=== PATIENT | male | born 2000 | race African-American/Black ===

== ENCOUNTER 2018-02-11 11:29 | Emergency (ER) | payer OTHER ==
[~2018-02-11] VITALS: Ht 167.6 cm; Wt 95.3 kg
[~2018-02-11 11:29] MED LIST: DESPEC-DM TABL1 EACH PO; ZITHROMAX200 MG PO
[2018-02-11] MEDS ORDERED: MEDROLPACK PO (15:12)
[2018-02-11] MEDS ORDERED: AMOX1TAB5 PO (15:12)
[2018-02-11] MEDS ORDERED: TUSSI PRES-B L120 M1 PO (15:12)
== END 2018-02-11 15:46 | disposition home or self-care (01) ==
LOC: ER 11:29
DX: J06.9 Acute upper respiratory infection, unspecified (principal)